=== PATIENT | female | born 1985 | race Caucasian/White ===

== ENCOUNTER → 2017-01-22 | Outpatient (CLI) | payer OTHER | LOC: FIMAGING 08:53 | PROVIDERS: ATTEND Surgery | DX: N64.4 Mastodynia (principal) | CPT/HCPCS: G0204 ==

== ENCOUNTER 2018-01-03 14:16 | Emergency (ER) | payer OTHER ==
--- NOTE | 2018-01-03 16:19 | EDPHY ---
H & P Stated Complaint: N/D x 6mo [employer]OM[employer], worse today. No bleeding/parasites per 2wks prior. Time Seen by Provider: 01/03/18 16:16 HPI/ROS: CHIEF COMPLAINT: Nausea, diarrhea HISTORY OF PRESENT ILLNESS: The patient presents the ED with an acute exacerbation of chronic nausea and diarrhea. The patient has been prescribed Zofran by her primary care provider. She has had a number of GI pathogen panels which have been negative. She is scheduled to see Gastroenterology for a intake visit in the coming weeks. The patient has no formal diagnosis. She has not been on any medications for inflammatory bowel disorder or irritable bowel syndrome. The patient describes fairly typical nausea and diarrhea today. She denies any fever. She denies severe abdominal pain. She denies any upper respiratory symptoms such as cough or congestion. REVIEW OF SYSTEMS: A comprehensive 10 point review of systems is otherwise negative aside from elements mentioned in the history of present illness. Source: Patient Exam Limitations: No limitations - Personal History Current Tetanus/Diphtheria Vaccine: Yes Tetanus Vaccine Date: 2012 - Medical/Surgical History Hx Asthma: No Hx Chronic Respiratory Disease: No Hx Diabetes: No Hx Cardiac Disease: No Hx Renal Disease: No Hx Cirrhosis: No Hx Alcoholism: No Hx HIV/AIDS: No Hx Splenectomy or Spleen Trauma: No Other PMH: wisdom teeth extraction - Social History Smoking Status: Never smoked - Physical Exam Exam: General Appearance: Alert, no distress Eyes: Pupils equal and round no pallor or injection ENT, Mouth: Mucous membranes moist Respiratory: There are no retractions, lungs are clear to auscultation Cardiovascular: Regular rate and rhythm Gastrointestinal: Mild generalized abdominal tenderness, no peritoneal signs, normal bowel sounds Neurological: 5/5 strength all 4 extremities Skin: Warm and dry, no rashes Musculoskeletal: Neck is supple nontender Extremities: symmetrical, full range of motion Constitutional: Initial Vital Signs Temperature (C) 36.9 C 01/03/18 14:32 Heart Rate 89 01/03/18 14:32 Respiratory Rate 16 01/03/18 14:32 Blood Pressure 143/86 H 01/03/18 14:32 O2 Sat (%) 97 01/03/18 14:32 O2 Delivery Mode Room Air Allergies/Adverse Reactions: No Known Allergies Allergy (Verified 01/03/18 14:32) Home Medications: Medication Instructions Recorded Ketorolac Tromethamine [Toradol] 1 tab PO Q6H PRN #12 tab 07/02/14 Ondansetron Odt [Zofran Odt] 1 tab PO TID PRN #6 tab 07/02/14 Advil 10/04/14 Tylenol 10/04/14 oxyCODONE/APAP 5/325 [Percocet 1 tab PO Q4-6PRN PRN #14 tab 10/04/14 5/325] Hyoscyamine Sulfate [Levsin] 0.125 mg PO TID PRN #30 tablet 01/03/18 Ondansetron Odt [Zofran Odt] 4 mg PO Q4PRN PRN #20 tab 01/03/18 Medical Decision Making ED Course/Re-evaluation: I reviewed the patient's past medical records including the most recent GI pathogen panel. The patient is nontoxic and well-appearing. She has been struggling with chronic diarrhea and nausea. Laboratory studies demonstrate a slight leukocytosis. The remainder of her basic metabolic panel, liver function test and lipase are normal. At this point time I am fairly suspicious that the patient has irritable bowel syndrome. I do feel it is reasonable to have her begin Levsin to see if this improves her symptoms. She is also given a prescription for Zofran. At this point time I do feel the patient can be discharged home. She did receive a L of normal saline and IV Zofran for management of her symptoms in the ED. Differential Diagnosis: Differential diagnosis considered includes dehydration, pancreatitis, hepatitis , irritable bowel syndrome, inflammatory bowel disease - Data Points Laboratory Results: Laboratory Results 01/03/18 16:35 01/03/18 16:35 01/03/18 01/03/18 01/03/18 16:35 16:35 16:35 WBC 13.40 10^3/uL H 10^3/uL (3.80-9.50) RBC 5.16 10^6/uL 10^6/uL (4.18-5.33) Hgb 15.9 g/dL g/dL (12.6-16.3) Hct 46.6 % % (38.0-47.0) MCV 90.3 fL fL (81.5-99.8) MCH 30.8 pg pg (27.9-34.1) MCHC 34.1 g/dL g/dL (32.4-36.7) RDW 12.3 % % (11.5-15.2) Plt Count 250 10^3/uL 10^3/uL (150-400) MPV 9.8 fL fL (8.7-11.7) Neut % (Auto) 92.4 % H % (39.3-74.2) Lymph % (Auto) 2.9 % L % (15.0-45.0) Gaines % (Auto) 4.1 % L % (4.5-13.0) Eos % (Auto) 0.0 % L % (0.6-7.6) Baso % (Auto) 0.3 % % (0.3-1.7) Nucleat RBC Rel Count 0.0 % % (0.0-0.2) Absolute Neuts (auto) 12.38 10^3/uL H 10^3/uL (1.70-6.50) Absolute Lymphs (auto) 0.39 10^3/uL L 10^3/uL (1.00-3.00) Absolute Monos (auto) 0.55 10^3/uL 10^3/uL (0.30-0.80) Absolute Eos (auto) 0.00 10^3/uL L 10^3/uL (0.03-0.40) Absolute Basos (auto) 0.04 10^3/uL 10^3/uL (0.02-0.10) Absolute Nucleated RBC 0.00 10^3/uL 10^3/uL (0-0.01) Immature Gran % 0.3 % % (0.0-1.1) Immature Gran # 0.04 10^3/uL 10^3/uL (0.00-0.10) RBC/WBC/PLT Morphology TNP Platelet Estimate TNP Sodium 136 mEq/L mEq/L (135-145) Potassium 4.2 mEq/L mEq/L (3.3-5.0) Chloride 101 mEq/L mEq/L (97-110) Carbon Dioxide 25 mEq/l mEq/l (22-31) Anion Gap 10 mEq/L mEq/L (6-14) BUN 13 mg/dL mg/dL (7-23) Creatinine 0.8 mg/dL mg/dL (0.6-1.0) Estimated GFR > 60 Glucose 107 mg/dL H mg/dL (70-100) Calcium 10.0 mg/dL mg/dL (8.5-10.4) Total Bilirubin 1.3 mg/dL mg/dL (0.1-1.4) Conjugated Bilirubin 0.2 mg/dL mg/dL (0.0-0.5) Unconjugated Bilirubin 1.1 mg/dL mg/dL (0.0-1.1) AST 24 IU/L IU/L (14-46) ALT 27 IU/L IU/L (9-52) Alkaline Phosphatase 117 IU/L IU/L (38-126) Total Protein 7.8 g/dL g/dL (6.3-8.2) Albumin 4.8 g/dL g/dL (3.5-5.0) Lipase 67 IU/L IU/L (23-300) Beta HCG, Qual NEGATIVE Medications Given: Discontinued Medications Sodium Chloride (Ns) 1,000 mls @ 0 mls/hr IV EDNOW ONE; Wide Open PRN Reason: Protocol Stop: 01/03/18 16:26 Last Admin: 01/03/18 16:44 Dose: 1,000 mls Sodium Chloride (Ns) 1,000 mls @ 0 mls/hr IV EDNOW ONE; Wide Open PRN Reason: Protocol Stop: 01/03/18 16:26 Last Admin: 01/03/18 16:43 Dose: 1,000 mls Ondansetron HCl (Zofran) 4 mg IVP EDNOW ONE Stop: 01/03/18 17:15 Last Admin: 01/03/18 17:27 Dose: 4 mg Departure - Departure Disposition: Home, Routine, Self-Care Clinical Impression: Diarrhea, Vomiting Condition: Good Instructions: Acute Diarrhea (ED) Additional Instructions: 1. Zofran as needed for nausea. 2. Levsin as needed for abdominal bloating and discomfort. 3. Please return to the ED for markedly worsening symptoms or other concerns. 4. Please follow up with Gastroenterology as scheduled. Referrals: Dena Boyce MD [Primary Care Provider] - As per Instructions Prescriptions: Hyoscyamine Sulfate [Levsin] 0.125 mg PO TID PRN #30 tablet PRN Reason: for abdominal discomfort Ondansetron Odt [Zofran Odt] 4 mg PO Q4PRN PRN #20 tab PRN Reason: For Nausea
[2018-01-03] MEDS ORDERED: NS 1,000 ML IV ONE ×2 (16:25)
[2018-01-03 16:48] LABS: PLATELET COUNT 250 10^3/uL (150-400)
[2018-01-03] MEDS ORDERED: ONDANSETRON 4 MG/2 ML VIAL IVP ONE (17:14)
[2018-01-03 17:49] VITALS: BP 130/80
== END 2018-01-03 18:08 | disposition home or self-care (01) ==
DX: R19.7 Diarrhea, unspecified (principal); R11.2 Nausea with vomiting, unspecified; E86.9 Volume depletion, unspecified
CPT/HCPCS: 96374; J2405

== ENCOUNTER 2018-01-03 19:52 | Emergency (ER) | payer OTHER ==
--- NOTE | 2018-01-03 20:31 | EDPHY ---
H & P Time Seen by Provider: 01/03/18 19:54 HPI/ROS: CHIEF COMPLAINT: Fever, diarrhea, flank pain and dysuria History by patient HISTORY OF PRESENT ILLNESS: 32-year-old woman with a history of recurrent and chronic diarrhea presents today after being seen at [facility] for the same symptoms earlier concerned because she thinks she has some kind of infection. Patient states that she has had a almost 2 weeks of watery, yellow, nonbloody diarrhea and then today at work developed lots of nausea but no vomiting as well as bilateral flank low back pain. Her last bowel movement was about 7 hr ago. She has also had several days of dysuria. She was unable to drink and so she went to the ER where shoe was given IV fluids and Zofran. She had labs and urinalysis which were unremarkable. She had a negative stool studies from the urgent care 2 weeks ago when the symptoms began. She says she was discharged home not feeling any different than how she felt when she arrived in the ER initially. On the way home the patient noted that she had an elevated white blood cell count on her blood work and she called the nurse advice line who said that could be a sign of infection and recommended she take her temperature. Patient used her thermometer and said she had a temperature of a 101 so the nurse recommended she come back to the ER. Patient states her nausea has greatly improved although she still has some anorexia. She denies abdominal pain but complains of the persistent low back pain. She denies any hematuria. She has a history of urinary tract infections in the past and this feels similar. She denies any vaginal bleeding. Her last menstrual period was December 14, putting her at mid cycle. She has not taken anything for the fever or back pain. Patient denies any headache, cough, runny nose, she had a sore throat about a week ago. She denies any rash. She has no known ill contacts. She did traveling [facility] over 2 months ago. She has had multiple stool studies for the recurrent diarrhea have all been negative. She has been seen in the ER as well as in multiple urgent care visits for these problems. However she has not been tested for C difficile. She has an appointment pending with Gastroenterology next month because of these recurrent GI symptoms. REVIEW OF SYSTEMS: As in HPI, and all other systems reviewed and are negative Smoking Status: Never smoked Physical Exam: General Appearance: Alert, nontoxic-appearing. Eyes: Pupils equal and round, extraocular movements intact, no pallor or injection. Mouth: Mucous membranes moist. Pharynx clear, tonsils within normal limits Neck: No cervical nodes no submandibular nodes Respiratory: Normal, effort, lungs are clear to auscultation. No wheezes, rales or rhonchi. Cardiovascular: Regular rate and rhythm. S1, S2, no murmurs, gallops or rubs appreciated Gastrointestinal: bowel sounds present, Abdomen is soft and nondistended, mild right lower quadrant tenderness which is not present when the patient is distracted, no rebound or guarding,, no masses Back: No CVA tenderness, no bony tenderness Neurological: Awake, alert and oriented x 3, no pronator drift, normal gait, no pronator drift Skin: Warm and dry, no rashes. Musculoskeletal: No deformities or tenderness. Extremities: full range of motion, no edema Psychiatric: Patient has normal affect, there is no agitation. Constitutional: Initial Vital Signs Temperature (C) 37.5 C 01/03/18 20:01 Heart Rate 108 H 01/03/18 20:01 Respiratory Rate 16 01/03/18 20:01 Blood Pressure 150/92 H 01/03/18 20:01 O2 Sat (%) 95 01/03/18 20:01 O2 Delivery Mode Room Air Allergies/Adverse Reactions: No Known Allergies Allergy (Verified 01/03/18 14:32) Home Medications: Medication Instructions Recorded NK [No Known Home Meds] 01/03/18 MDM/Departure - MDM Medications Given: Discontinued Medications Acetaminophen (Tylenol) 1,000 mg PO EDNOW ONE Stop: 01/03/18 20:42 Last Admin: 01/03/18 20:45 Dose: 1,000 mg ED Course/Re-evaluation: A 32-year-old woman with a history of chronic intermittent diarrhea presents concerned about infection because of her white blood cell count of 13 from labs done earlier today at [facility] ER and a temperature of a 101 at home. Review patient's old records show she had an extensive workup for her diarrhea including infectious causes and celiac disease since 2014. Patient was worried because she does not typically get back pain. Although urinalysis was negative at [facility], the patient did have a temperature increased to 37.8 so we rechecked her urine here. In addition we have sent her urine for culture. Patient's exam is unremarkable here. She is tolerating oral fluids. We discussed return precautions including but not limited to inability to take fluids and medication, uncontrolled pain, bloody diarrhea. Patient was discharged home in stable condition. - Depart Disposition: Home, Routine, Self-Care Clinical Impression: Diarrhea Qualifiers: Diarrhea type: unspecified type Qualified Code(s): R19.7 - Diarrhea, unspecified Fever Qualifiers: Fever type: unspecified Qualified Code(s): R50.9 - Fever, unspecified Condition: Good Instructions: Acute Diarrhea (ED) Additional Instructions: You were seen by Dr. Jennifer Hugo today. Your repeat urine test today was negative. We have sent it for culture and those results will be available in 24-48 hours. In the meantime you may take acetaminophen 1000 mg 4 times a day as needed for fever and pain and ibuprofen 400-600 mg 4 times a day as needed for fever and pain. Continue to take the Zofran as needed for nausea and vomiting. Return for any worsening or new concerns, including but not limited to blood in the diarrhea, inability to take fluids or medications or uncontrolled pain. Referrals: Dena Boyce MD [Primary Care Provider] - As per Instructions
[2018-01-03] MEDS ORDERED: ACETAMINOPHEN 500 MG TAB PO ONE (20:41)
[2018-01-03 20:42] VITALS: BP 139/88
== END 2018-01-03 21:05 | disposition home or self-care (01) ==
LOC: CED 19:52
DX: R19.7 Diarrhea, unspecified (principal); R50.9 Fever, unspecified